=== PATIENT | male | born 1995 | race Caucasian/White ===

== ENCOUNTER 2018-01-30 21:51 | Emergency (ER) | payer BC ==
[~2018-01-30] VITALS: Ht 190.5 cm; Wt 112.3 kg
[2018-01-30 22:03] VITALS: Ht 190.5 cm; Wt 112.3 kg
[2018-01-30] MEDS ORDERED: ADDERALL XR 2525 MG PO (22:05)
[2018-01-30 22:54] LABS: APPEARANCE CLEAR (CLEAR); BILIRUBIN NEGATIVE (NEGATIVE); COLOR YELLOW (YELLOW); GLUCOSE NEGATIVE (NEGATIVE); KETONE NEGATIVE (NEGATIVE); NITRITE NEGATIVE (NEGATIVE); PROTEIN NEGATIVE (NEGATIVE); UROBILINOGEN NORMAL (NORMAL)
[2018-01-30] MEDS ORDERED: ROBAXIN500 MG PO (23:09)
[2018-01-30 23:23] VITALS: BP 115/74
== END 2018-01-30 23:24 | disposition home or self-care (01) ==
LOC: D.ER 21:51
PROVIDERS: Family Medicine
DX: R07.89 Other chest pain (principal); M62.838 Other muscle spasm; F90.9 Attention-deficit hyperactivity disorder, unspecified type